=== PATIENT | female | born 1960 | race Caucasian/White ===

== ENCOUNTER 2024-05-09 12:40 | Outpatient (AMB) | payer MEDICAID, SELFPAY ==
[2024-05-09 12:41] VITALS: BP 126/72; PULSE 75; O2SAT 98; BMI 41.2
--- NOTE | 2024-05-09 12:41 | MHC.OFFVIS ---
Vital Signs 05/09/24 12:41 Height 5 ft 2 in Weight 225 lb 8 oz BMI 41.2 BP 126/72 Blood Pressure Location Lt brachial Position Sitting Pulse 75 Pulse Source Pulse Oximeter Pulse Oximetry (%) 98 Oxygen Delivery Method Room Air Intake Visit Reasons: OA Intake Note: Patient presents for follow up on OA, complains of bilateral knee pain, left since February. HPI HPI OA: Details: She has had recurrence of left knee pain. Last cortisone injection lasted at least 3 months. Knee brace does not fit her well due to knee swelling and causes increased pain. She has not been icing or heating knee. [facility] Medical History (Updated 05/09/24 @ 22:04 by Familia Holloway MD) Osteoarthritis Surgical History (Updated 05/09/24 @ 12:59 by Garima Manriquez CMA) No pertinent past surgical history Family History (Updated 05/09/24 @ 13:01 by Garima Manriquez CMA) Mother Diabetes Heart disease Father Heart disease Social History (Updated 05/09/24 @ 13:01 by Garima Manriquez CMA) Alcohol intake: never Patient Tobacco Use Status: Current everyday Tobacco user Cigarettes Per Day: 6 Review of Systems Const All systems reviewed & are unremarkable except as noted in HPI and below Physical Exam Vital Signs: Last Vital Signs Pulse 75 05/09/24 12:41 BP 126/72 05/09/24 12:41 Pulse Ox 98 05/09/24 12:41 Oxygen Delivery Method Room Air 05/09/24 12:41 BMI result Body Mass Index 41.2 Const Other: General: Comfortable Skin: No lesions seen MSK: Tender to palpate left knee along joint line. Mild knee effusion present. Knee flexion 90 degrees with pain. Office Procedures AMB Joint Injection/Aspiration Joint Injection/Aspiration Details: Left knee joint Prep: site was prepped using aseptic technique Injected: 40 mg of, Kenalog, with 1 mL of and 1% plain lidocaine Procedure: The patient tolerated the procedure well. Postprocedure protocol was discussed with patient. Coding 90495 - Large joint Procedure code (CPT) selection complete Office Meds lidocaine (PF) 10 mg/mL (1 %) injection solution Performing Provider: Familia Holloway MD Performing Location: [facility] Administered by: Familia Holloway MD on 05/09/24 21:55 Dose Route Admin Location Dispensed Lot Number Expiration Date [facility] Engineer Sergeant 10 mg Infiltration 2 mL [id number] [employer] Kenalog 40 mg/mL suspension for injection Performing Provider: Familia Holloway MD Performing Location: [facility] Administered by: Familia Holloway MD on 05/09/24 21:55 Dose Route Admin Location Dispensed Lot Number Expiration Date [facility] Engineer Sergeant 40 mg intra-articular 1 mL [id number] [employer] Results Reviewed Results Reviewed: X-ray left knee 05/04/2024 reviewed. Patient has mild tricompartment osteoarthritis. Similar to x-ray 08/05/2020 of bilateral knees, which reveals mild bilateral medial and lateral joint space narrowing. Assessment & Plan Assessment & Plan (1) Osteoarthritis of left knee: Comment: Recurrent left knee pain due to osteoarthritis flare. We reviewed recent x-ray results from [facility] EMR. She has mild osteoarthritis. We discussed management. Code(s): M17.12 - Unilateral primary osteoarthritis, left knee Category: Medical Qualifiers: Osteoarthritis type: primary Qualified Code(s): M17.12 - Unilateral primary osteoarthritis, left knee Plan: Patient received cortisone injection to left knee Apply ice to knee to 3 times a day She deferred physical therapy at this time due to her having multiple appointments with her physicians in the next 2 months Can consider topical diclofenac gel if needed in the future Return to clinic in 3 months or sooner if needed Orders: Orders AMB Joint Injection/Aspiration Today M17.12 - Unilateral primary osteoarthritis, left knee Coding Level of Care Code Est Pt Level 3 (01566) Complex EM visit Add On G2211 Diagnoses Primary osteoarthritis of left knee M17.12 Osteoarthritis type: primary CPT Codes Coding - Large joint: 89740 - Large joint ([id number])
--- OUTSIDE RECORDS SUMMARY | 2024-05-09 14:27 | XMS_ITS | Clinical Summary ---
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 Name Role Phone Unavailable Primary Care Provider Unavailabl e Source Comments PLEASE NOTE, if this patient is a minor, it may be UNLAWFUL to discuss sensitive information that is contained in these records (such as FAMILY PLANNING, MENTAL HEALTH or SUBSTANCE ABUSE) with the minor patient's parent or other person without the patient's specific authorization.[facility] Medications ibuprofen (ADVIL,MOTRIN) 600 mg tablet Take 1 Tab by mouth 4 (four) times daily as needed for pain 12 Tab 08/22/2018 Active Immunizations Name Administration Dates Next Due Moderna COVID-19 Vaccine, re d cap blue label, 12+ Primary Series 08/20/2020,07/23/2020 Social History Tobacco Use Types Packs/Day Years Used Date Smoking Tobacco: Never Assessed Social Connections Answer Date Recorded Social Connections and Isolation 0 07/23/2020 Financial Resource Strain Answer Date R ecorded Financial Resource Strain 0 2020 Stress Answer Date Recorded Stress 0 07/23/2020 Physical Activity Answer Date Recorded Physical Activity 0 07/23/2020 Food Insecurity Answer Date Recorded Food 0 07/23/2020 Transportation Needs Answer Date Record ed Transportation 0 07/23/2020 Housing Stability Answer Date Recorded Housing 0 07/23/2020 Safety and Environment Answer Date Juan Miguel rded Safety 0 07/23/2020 Utilities Answer Date Recorded Utilities 0 07/23/2020 Employment Answer Date Recorded Employment 0 07/23/2020 Comments Unknown Sex and Gender Information Value Date Recorded Sex Assigned at Not on file Legal Sex Female 12:36 PM PDT Gender Identity Not on file Sexual Orientation Not on file Plan of Treatment Health Maintenance Due Date Last Done Comments Diabetes Screening 1960 Hepatitis C Screening 1958 Lipid Screening 1958 Tobacco Screening 1958 HIV Screening 1973 Annual Preventive Care Visit 1976 Hypertension Screening (#1) 1976 Imm-DTaP/Tdap/Td (1 - Tdap) 1977 Breast Cancer Screening (Mammogram) 1998 CT Colonography 10/20/2003 Colonoscopy 10/20/2003 Colorectal Cancer Screening 10/20/2003 FIT/gFOBT 10/20/2003 Fecal DNA 10/20/2003 Flexible Sigmoidoscopy 10/20/2003 Imm-Zoster, Recombinant (1 of 2) 2008 Alcohol and Drug Screen 04/18/2023 Depression Annual Screen 04/18/2023 Bone Density Screening 10/20/2023 Falls Prevention 10/20/2023 Imm-Pneumococcal 65+ (1 of 1 - PCV) 10/20/2023 [id number] (3 - 2023- season) 2023 021, 07/23/2020 Imm-Influenza (#1) 2023 Insurance [place] [facility] D[facility]AL [place]
--- OUTSIDE RECORDS SUMMARY | 2024-05-09 14:27 | XMS_ITS | Data Portability ---
Author Organization [place] - [facility], All[facility] Address [address] [place] [address] Assessment Encounter Date Assessment Date Assessment LastModified by Organization Details LastModified Time 04/24/2024 04/24/2024 63 year old diabetic female presents reporting acute sinusitis. I have issued her a prescription for ten day course of Doxycycline. I did also issue her a prescription for Prednisone but given her diabetes she would need to monitor her blood sugars closely if she decides to take the Prednisone. I will see her back in one month for reevaluation. If her symptoms persist she may benefit from nasal endoscopy and potentially CT sinus. She is also interested in allergy testing. Not available 04/24/2024 14:38:35 Plan of Treatment Reminders Order Date Submit Date Provider Last Modified By Organization Details Last Modified Time Details Appointments Establish ed 15 2024 01:15P Tomer HEBERT PA-C Not available Not available Not available Lab None recorded. Referral None recorded. Procedures None recorded. Surgeries None recorded. Imaging None recorded. Medication Orders doxycycli ne hyclate 100 mg tablet 2024 025 [id number], [address] [place], [address], 04/24/2024 14:26:25 prednison e 10 mg tablet 2024 025 [id number], [address] [place], [address], 04/25/2024 14:28:40 Patient TargetsNo targets recorded. Patient InstructionsNo instructions recorded. Reason for Referral None Reported. Problems Name Problem SNOMED Code Status Onset Date Resolution Date Notes Provider Name and Address Organization Details Recorded Time Chronic pansinusi tis 16748742 Active 2022 Chronic pansinusit is; Note: Date Diagnosed: 06/23/2022 11:57 AM (J32.4) Not Available [facility] 4 03:27:36 Gastroeso phageal reflux disease 052204069 Active 2013 GERD; CMS Risk: moderate risk CMS Treatment: new problem (to examiner): no additional workup planned No te: Date Diagnosed: 01/18/2014 10:41 AM (530.81) Not Available [facility] 4 03:27:36 Dysphagia 45960584 Active 2013 Dysphagia; CMS Risk: moderate risk CMS Treatment: new problem (to examiner): no additional workup planned No te: Date Diagnosed: 01/18/2014 10:41 AM (787.20) Not Available [facility] 4 03:27:37 Acute sinusitis 77294035 Active 2024 LEON HEBERT PA-C [address] [place] [address], [place], [address] , [facility] 5 14:23:03 Problem Notes None recorded. Medical Equipment None Reported. Allergies Allergen ID Allergen Name Allergen Category Reaction Reaction Severity Criticality Documentation Date Start Date Code Code System Note Provider Name and Address Organization Details Recorded Time 17148 clarithro mycin medicatio n other Not available Not available 08/30/2023 31383 RxNorm React ion: Unkno wn; Not Available [facility] 4 00:49:19 48892 Bactrim medicatio n other Not available Not available 08/30/2023 96832 9 RxNorm React ion: Unkno wn; Not Available [facility] 4 00:49:34 35504 amoxicill in medicatio n other Not available Not available 08/30/2023 723 RxNorm React ion: Unkno wn; Not Available [facility] 4 00:49:45 Medications Name Sig Start Date Stop Date Status Note LastModified by Organization Details LastModified Time metformin 500 mg tablet TAKE 1 TABLET BY MOUTH 2 TIMES A DAY WITH MEALS X 90 DAYS WITH MEALS active Not Available Not Available No t Available atorvasta tin 80 mg tablet TOME 1 TABLETA POR V A ORAL TODOS LOS D active Not Available Not Available No t Available prednison e 10 mg tablet TOME 4 TABS DIARIO POR 3 ELLSWORTH, 3 TABS DIARIO POR 3 ELLSWORTH, Y 2 TABS DIARIO POR 3 ELLSWORTH active Not Available Not Available No t Available doxycycli ne hyclate 100 mg capsule Take 1 capsule by mouth twice a day 2022 active Medicati on ID: [id number] D uration Value: 14 Brand Name: doxycycl ine hyclate Send Method: E-Prescr ibed Sub s Allowed: subs OK Medic ationGen ericName : doxycycl ine hyclate Not Available Not Available Not Available albuterol sulfate 2.5 mg/3 mL (0.083 %) solution for nebulizat ion 06/23 completed Medicati on ID: 1166 Bra nd Name: albutero l sulfate Send Method: E-Prescr ibed Sub s Allowed: subs OK Medic ationGen ericName : albutero l sulfate Not Available Not Available Not Available azithromy hector 250 mg tablet TOME 2 TABLETAS V A ORAL HOY, LUEGO TOME 1 TABLETA DIARIAME NTE RUBEN 4 D SEG N LAS INDICACI ONES active Not Available Not Available No t Available fosfomyci n trometham ine 3 gram oral packet TAKE 1 SACHET BY MOUTH ONCE active Not Available Not Available No t Available nicotine (polacril ex) 2 mg gum CHEW 1 PIECE EVERY 2 HOURS NEEDED FOR SMOKING CESSATIO N SEG N LO INDICADO active Not Available Not Available No t Available metoprolo l succinate ER 50 mg tablet,ex tended release 24 hr TOME 1 TABLETA POR V A ORAL TODOS LOS D active Not Available Not Available No t Available FreeStyle Lancets 28 gauge USE TO TEST BLOOD SUGAR UP TO 3 TIMES DAILY DIRECTED active Not Available Not Available No t Available lisinopri l 20 mg tablet 06/23 completed Medicati on ID: 1161 Bra nd Name: lisinopr il Send Method: E-Prescr ibed Sub s Allowed: subs OK Medic ationGen ericName : lisinopr il Not Available Not Available Not Available ondansetr on HCl 4 mg tablet TOME OMAIRA TABLETA POR V A ORAL CADA OCHO HORAS FOR 5 DAYS active Not Available Not Available No t Available prednison e 20 mg tablet TOME DOS TABLETAS POR V A ORAL TODOS LOS D POR 5 D CON ALIMENTO OR MILK active Not Available Not Available No t Available clonazepa m 0.5 mg tablet TAKE 1 TABLET BY MOUTH AT BEDTIME NEEDED FOR ANXIETY/ INSOMNIA active Not Available Not Available No t Available clonazepa m 1 mg tablet active Medicati on ID: [id number] B rand Name: clonazep am Send Method: E-Prescr ibed Sub s Allowed: subs OK Speci al Instruct ion: TAKE 1 TABLET BY MOUTH AT BEDTIME NEEDED FOR ANXIETY/ INSOMNIA Medicat ionGener icName: clonazep am Not Available Not Available Not Available Lantus U-100 Insulin 100 unit/mL subcutane ous solution INJECT 25 UNITS SUBCUTAN EOUS INJECTIO N DAILY active Not Available Not Available No t Available amlodipin e 2.5 mg tablet active Medicati on ID: [id number] B rand Name: amlodipi ne Send Method: E-Prescr ibed Sub s Allowed: subs OK Speci al Instruct ion: TOME OMAIRA TABLETA POR V A ORAL TODOS LOS D Medic ationGen ericName : amlodipi ne Not Available Not Available Not Available amlodipin e 5 mg tablet TOME 1 TABLETA POR V A ORAL TODOS LOS D FOR 90 DAYS active Not Available Not Available No t Available aspirin 81 mg tablet,de layed release TOME 1 TABLETA POR V A ORAL TODOS LOS D DO NOT CRUSH OR CHEW active Not Available Not Available No t Available Vitamin D3 10 mcg (400 unit) tablet TOME DOS TABLETAS POR V A ORAL TODOS LOS D active Not Available Not Available No t Available clindamyc in 1 % topical gel APPLY TOPICALL Y 2 TIMES A DAY FOR 7 DAYS USE IF BENZOYL PEROXIDE NOT WORKING AFTER 10 DAYS active Not Available Not Available No t Available ascorbic acid (vitamin C) 250 mg tablet TOME OMAIRA TABLETA TODOS LOS D active Not Available Not Available No t Available amlodipin e 10 mg tablet TOME OMAIRA TABLETA POR V A ORAL TODOS LOS D active Not Available Not Available No t Available benzonata te 100 mg capsule TOME 1 C PSULA POR V A ORAL RAYNA VECES AL D A CUANDO SEA NECESARI O PARA COUGH, [place] active Not Available Not Available No t Available nitrofura ntoin macrocrys sandra 100 mg capsule TOME 1 C PSULA POR V A ORAL DOS VECES AL D A active Not Available Not Available No t Available triamcino lone acetonide 0.1 % topical ointment APPLY TO ARMS, BACK, AND LEGS TWICE A DAY NEEDED FOR FLARES REDUCE SYMPTOMS IMPROVE active Not Available Not Available No t Available buspirone 10 mg tablet active Medicati on ID: [id number] B rand Name: buspiron e Send Method: E-Prescr ibed Sub s Allowed: subs OK Speci al Instruct ion: TAKE 1 TABLET BY MOUTH TWICE DAILY Me dication GenericN cristian: buspiron e Not Available Not Available Not Available Advair Diskus 250 mcg-50 mcg/dose powder for inhalatio n active Medicati on ID: [id number] B rand Name: Advair Diskus S end Method: E-Prescr ibed Sub s Allowed: subs OK Speci al Instruct ion: INHALE 1 PUFF INHALATI ON TWICE A DAY FOR 30 DAYS. Me dication GenericN cristian: Advair Diskus Not Available Not Available Not Available nicotine 21 mg/24 hr daily transderm al patch APPLY 1 PATCH TOPICALL Y A DIARIO active Not Available Not Available No t Available lisinopri l 30 mg tablet TOME 1 TABLETA POR V A ORAL TODOS LOS D active Not Available Not Available No t Available monteluka st 10 mg tablet TOME OMAIRA TABLETA POR V A ORAL CADA NOCHE active Not Available Not Available No t Available mirtazapi ne 15 mg tablet TOME 1 TABLETA POR V A ORAL TODOS LOS D AL ACOSTARS E active Not Available Not Available No t Available lisinopri l 40 mg tablet active Medicati on ID: [id number] B rand Name: lisinopr il Send Method: E-Prescr ibed Sub s Allowed: subs OK Speci al Instruct ion: TOME OMAIRA TABLETA TODOS LOS D Medic ationGen ericName : lisinopr il Not Available Not Available Not Available fluoxetin e 20 mg capsule TOME OMAIRA C PSULA TODOS LOS D active Not Available Not Available No t Available fluticaso ne propionat e 50 mcg/actua tion nasal spray,melita pension 06/23 completed Medicati on ID: [id number] B rand Name: fluticas one propiona te Send Method: E-Prescr ibed Sub s Allowed: subs OK Speci al Instruct ion: USE 2 SPRAYS IN EACH NOSTRIL ONCE DAILY Me dication GenericN cristian: fluticas one propiona te Not Available Not Available Not Available doxycycli ne hyclate 100 mg tablet TOME 1 TABLETA POR V A ORAL DOS VECES AL D A FOR 21 DAYS active Not Available Not Available No t Available loratadin e 10 mg tablet TOME 1 TABLETA POR V A ORAL TODOS LOS D active Not Available Not Available No t Available Ventolin HFA 90 mcg/actua tion aerosol inhaler INHALE 2 PUFFS BY MOUTH EVERY 6 HOURS NEEDED FOR WHEEZING /SHORTNE SS OF BREATH active Not Available Not Available No t Available clonazepa m 2 mg disintegr ating tablet 06/23 completed Medicati on ID: 1164 Bra nd Name: clonazep am Send Method: E-Prescr ibed Sub s Allowed: subs OK Medic ationGen ericName : clonazep am Not Available Not Available Not Available Lorata-D 10 mg-240 mg tablet,ex tended release 06/23 completed Medicati on ID: [id number] Bra nd Name: Lorata-D Send Method: E-Prescr ibed Sub s Allowed: subs OK Medic ationGen ericName : Lorata-D Not Available Not Available Not Available metformin ER 1,000 mg tablet,ex tended release 24hr (osmotic) 06/23 completed Medicati on ID: 1159 Bra nd Name: metformi n Send Method: E-Prescr ibed Sub s Allowed: subs OK Medic ationGen ericName : metformi n Not Available Not Available Not Available varenicli ne tartrate 1 mg tablet TOME 1 TABLETA POR V A ORAL DOS VECES AL D A FOR 30 DAYS active Not Available Not Available No t Available varenicli ne tartrate 0.5 mg (11)-1 mg (42) tablets in a dose pack TOME SEG N LO INDICADO active Not Available Not Available No t Available Symbicort 160 mcg-4.5 mcg/actua tion HFA aerosol inhaler active Medicati on ID: [id number] B rand Name: Symbicor t Send Method: E-Prescr ibed Sub s Allowed: subs OK Speci al Instruct ion: INHALE 2 PUFFS DOS VECES AL D A Medica tionGene ricName: Symbicor t Not Available Not Available Not Available FreeStyle [place] Lite kit USE DIRECTED FOR TYPE 2 DIABETES MELLITUS active Not Available Not Available No t Available Mucus Relief ER 600 mg tablet, extended release TAKE 1 TAB BY MOUTH EVERY 12 HOURS,X7 DAYS,INS TR:NOT TO EXCEED 2400 MILLIGRA MS/DAY. WITH FLUIDS active Not Available Not Available No t Available fluoxetin e 60 mg tablet 06/23 completed Medicati on ID: 1162 Bra nd Name: fluoxeti ne Send Method: E-Prescr ibed Sub s Allowed: subs OK Medic ationGen ericName : fluoxeti ne Not Available Not Available Not Available BP Wash 5 % topical cleanser APLIQUE AL SHALINI AFECTADA DOS VECES AL D A active Not Available Not Available No t Available Nasacort 55 mcg nasal spray aerosol [place] 2 spray into both nostrils once a day 2022 active Medicati on ID: [id number] D uration Value: 30 Brand Name: Nasacort Send Method: E-Prescr ibed Sub s Allowed: subs OK Medic ationGen ericName : Nasacort Not Available Not Available Not Available nicotine (polacril ex) 2 mg buccal mini lozenge USE 1 LOZENGE BY MOUTH EVERY 2 HOURS DIRECTED ON PACKAGE active Not Available Not Available No t Available Trelegy Ellipta 200 mcg-62.5 mcg-25 mcg powder for inhalatio n active Medicati on ID: [id number] B rand Name: Trelegy Ellipta Send Method: E-Prescr ibed Sub s Allowed: subs OK Speci al Instruct ion: INHALE UN SOPLIDO A DIARIO AT THE SAME TIME EVERY DAY Medi cationGe nericNam e: Trelegy Ellipta Not Available Not Available Not Available aspirin 81 mg capsule 06/23 completed Medicati on ID: 1165 Bra nd Name: Aspir-81 Send Method: E-Prescr ibed Sub s Allowed: subs OK Medic ationGen ericName : Aspir-81 Not Available Not Available Not Available Vitals Date Recorded Body height Provider Name an d Address Organization Details Last Updated DateTime 04/24/2024 157.48 cm Geovanna Patterson [place] - [facility] 04/24/2024 13:42:40 Social History None recorded. Functional Status None recorded. Mental Status None recorded. Family History Nothing Reported. Medical History No medical history recorded. Gynecological HistoryNo gynecological history recorded. Obstetrics History GPAL:G 0 P 0 0 0 0 Past Encounters Encounter ID Performer Location Encounter Start Date Encounter Closed Date Diagnosis/Indication Diagnosis SNOMED-CT Code Diagnosis ICD10 Code Diagnosis Note [id number] SHANA HOFFMAN MD [facility] [address] [address] 04/24/2024 13:31:45 04/24/2024 14:30:23 Acute sinusitis 39507447 J01.90 Health Concerns Section Related Observation LastModified by Organization Detai ls LastModified Time None Recorded Concern Status LastModified by Organization Details LastModified Time None Recorded Advance Directives Directive None Recorded Payers Encounter Date Sequence Insurance Name Policy Number Policy Alfaro Covered Member ID Alfaro Member ID Guarantor Name 04/24/2024 1 [place]ICAID[place] [facility] Roxy Ian [id number] Roxy Sosa Notes Date Note Type Note Provider Name and Address Organization Details Recorded Time 04/24/2024 text/html 63 year old lázaro phillips presents to the office accompanied by her daughter reporting right sided facial pain and pressure for the past week. She reports bilateral facial pain as she points overlying her maxillary sinuses. She has been treated for recurrent sinusitis in the past by Dr. Hamilton and responded well to Doxycycline. She uses Nasocort daily. SHANA HOFFMAN MD [address] [place] [address], [phone], [place] - [facility] 04/24/2024 16:57:37 OBGyn Episode No OBEpisode recorded.
--- OUTSIDE RECORDS SUMMARY | 2024-05-09 14:27 | XMS_ITS | Continuity of Care Document ---
Author Organization [place] - [facility], [facility] Address [address] [place] [address] Assessment Encounter Date Assessment Date Assessment LastModified [...] 100 mg tablet 2024 025 [id number], [address] [place], [address], 04/24/2024 14:26:25 prednison e 10 mg tablet 2024 025 [id number], [address] [place], [address], 04/25/2024 14:28:40 Patient TargetsNo targets recorded. Patient InstructionsNo instructions recorded. Reason for Referral None Reported. Problems Name Problem SNOMED Code Status Onset Date Resolution Date Notes Provider Name and Address Organization Details Recorded Time Chronic pansinusi tis 63621681 Active 2022 Chronic pansinusit is; Note: Date Diagnosed: 06/23/2022 11:57 AM (J32.4) Not Available [facility] 4 03:27:36 Gastroeso phageal reflux disease 592204213 Active 2013 GERD; CMS Risk: moderate risk CMS Treatment: new problem (to examiner): no additional workup planned No te: Date Diagnosed: 01/18/2014 10:41 AM (530.81) Not Available [facility] 4 03:27:36 Dysphagia 07588897 Active 2013 Dysphagia; CMS Risk: moderate risk CMS Treatment: new problem (to examiner): no additional workup planned No te: Date Diagnosed: 01/18/2014 10:41 AM (787.20) Not Available [facility] 4 03:27:37 Acute sinusitis 23067178 Active 2024 LEON HEBERT PA-C [address] [place] [address],[place] [address], [place], [address] , [facility] - [facility] 5 14:23:03 Problem Notes None recorded. Medical Equipment None Reported. Allergies Allergen ID Allergen Name Allergen Category Reaction Reaction Severity Criticality Documentation Date Start Date Code Code System Note Provider Name and Address Organization Details Recorded Time 11309 clarithro mycin medicatio n other Not available Not available 08/30/2023 96421 RxNorm React ion: Unkno wn; Not Available [facility] 4 00:49:19 43905 Bactrim medicatio n other Not available Not available 08/30/2023 97366 9 RxNorm React ion: Unkno wn; Not Available [facility] 4 00:49:34 60312 amoxicill in medicatio n other Not available Not available 08/30/2023 723 RxNorm React ion: Unkno wn; Not Available [facility] 4 00:49:45 Medications Name Sig [...] a day 2022 active Medicati on ID: [id number] D uration Value: 14 Brand Name: doxycycl [...] 1 mg tablet active Medicati on ID: 928135 B rand Name: clonazep am Send Method: [...] 2.5 mg tablet active Medicati on ID: 362664 B rand Name: amlodipi ne Send Method: [...] 10 mg tablet active Medicati on ID: 263618 B rand Name: buspiron e Send Method: E-Prescr ibed Sub s Allowed: subs OK Speci al Instruct ion: TAKE 1 TABLET BY MOUTH TWICE DAILY Me dication GenericN cristian: buspiron e Not Available Not Available Not Available Advair Diskus 250 mcg-50 mcg/dose powder for inhalatio n active Medicati on ID: 270672 B rand Name: Advair Diskus S end [...] 40 mg tablet active Medicati on ID: 867842 B rand Name: lisinopr il Send Method: [...] spray,melita pension 06/23 completed Medicati on ID: 983942 B rand Name: fluticas one propiona te [...] HFA aerosol inhaler active Medicati on ID: 585875 B rand Name: Symbicor t Send Method: E-Prescr ibed Sub s Allowed: subs OK Speci al Instruct ion: INHALE 2 PUFFS DOS VECES AL D A Medica tionGene ricName: Symbicor t Not Available Not Available Not Available FreeStyle [place] Lite kit USE DIRECTED FOR TYPE 2 [...] Available Nasacort 55 mcg nasal spray aerosol [place]io 2 spray into both nostrils once a day 2022 active Medicati on ID: 782304 D uration Value: 30 Brand Name: Nasacort [...] for inhalatio n active Medicati on ID: 429323 B rand Name: Trelegy Ellipta Send Method: [...] ibed Sub s Allowed: subs OK Medic atdarionGen ericName : Aspir-81 Not Available Not Available Not Available Vitals Date Recorded Body height Provider Name an d Address Organization Details Last Updated DateTime 04/24/2024 157.48 cm Geovanna Patterson [place] - [facility] 04/24/2024 13:42:40 Social History None recorded. Functional Status None recorded. Mental Status None recorded. Family History Nothing Reported. Medical History No medical history recorded. Gynecological HistoryNo gynecological history recorded. Obstetrics History GPAL:G 0 P 0 0 0 0 Past Encounters Encounter ID Performer Location Encounter Start Date Encounter Closed Date Diagnosis/Indication Diagnosis SNOMED-CT Code Diagnosis ICD10 Code Diagnosis Note [id number] SHAAN HOFFMAN MD [facility] [address] [address] 04/24/2024 13:31:45 04/24/2024 14:30:23 Acute sinusitis 28007169 J01.90 Health Concerns Section Related Observation LastModified by Organization Detai ls LastModified Time None Recorded Concern Status LastModified by Organization Details LastModified Time None Recorded Payers Encounter Date Sequence Insurance Name Policy Number Policy Alfaro Covered Member ID Alfaro Member ID Guarantor Name 04/24/2024 1 MEDICAID-[place]: [facility] Roxy Ian [id number] Roxy Sosa Notes Date Note Type Note Provider Name and Address Organization Details Recorded Time 04/24/2024 text/html 63 year old lzáaro phillips presents to the office accompanied by her daughter reporting right sided facial pain and pressure for the past week. She reports bilateral facial pain as she points overlying her maxillary sinuses. She has been treated for recurrent sinusitis in the past by Dr. Hamilton and responded well to Doxycycline. She uses Nasocort daily. SHANA HOFFMAN MD [address] [place] [address], [phone], [facility] - [facility] 04/24/2024 16:57:37 OBGyn Episode No OBEpisode recorded.
--- OUTSIDE RECORDS SUMMARY | 2024-05-09 14:28 | XMS_ITS | Clinical Summary ---
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 Name Role Phone Unavailable Primary Care Provider Unavailabl e Social History Tobacco Use Types Packs/Day Years Used Date Smoking Tobacco: Never Assessed Sex and Gender Information Value Date Recorded Sex Assigned at Not on file Gender Identity Not on file Sexual Orientation Not on file Plan of Treatment Health Maintenance Due Date Last Done Comments Breast Cancer Screening 1958 DTaP,Tdap,and Td Vaccines (1 - Tdap) 1977 Cervical Cancer Screening: P ap Smear 10/20/1979 Zoster Vaccines (1 of 2) 2008 Colorectal Cancer Screening: Colonoscopy 03/21/2022 Depression Screening 03/21/2022 Hepatitis C Screening 03/21/2022 Osteoporosis Screening (Bone Density Screening) 03/21/2022 Social Influencers of Health Screening 03/21/2022 Falls Risk Assessment 10/20/2023 Pneumococcal Vaccine: 65+ Ye ars (1 of 1 - PCV) 10/20/2023 COVID-19 Vaccine ( - 2023-2 5 season) 2023 Influenza Vaccine (#1) 2023 RSV Immunization Patients 60 + Years Old (1 - 1-dose 75+ series) 2033 HIB Vaccines Aged Out No longer eligi ble based on patient's age to complete this topic HPV Vaccines Aged Out No longer eligi ble based on patient's age to complete this topic Hepatitis A Vaccines Aged Out No long er eligible based on patient's age to complete this topic Hepatitis B Vaccines Aged Out No long er eligible based on patient's age to complete this topic IPV Vaccines Aged Out No longer eligi ble based on patient's age to complete this topic MMR Vaccines Aged Out No longer eligi ble based on patient's age to complete this topic Meningococcal ACWY Vaccine Aged Out N o longer eligible based on patient's age to complete this topic Pneumococcal Vaccine: Pediat rics (0 to 5 Years) and At-Risk Patients (6 to 64 Years) Aged Out No longer eligible b ased on patient's age to complete this topic RSV Immunization Patients Un mika 20 months Aged Out No longer eligible b ased on patient's age to complete this topic Varicella Vaccines Aged Out No longer eligible based on patient's age to complete this topic Advance Directives Documents on File Type Date Recorded Patient Striker Off Expl anation Health Care Decision (hx) 01/31/2017 AD JON DIRECTIVE Health Care Decision (hx) 01/31/2017 AD JON DIRECTIVE Health Care Decision (hx) 01/31/2017 AD JON DIRECTIVE Health Care Decision (hx) 01/31/2017 AD JON DIRECTIVE Health Care Decision (hx) 01/31/2017 AD JON DIRECTIVE Health Care Decision (hx) 01/31/2017 AD JON DIRECTIVE Health Care Decision (hx) 01/31/2017 AD JON DIRECTIVE Health Care Decision (hx) 01/31/2017 AD JON DIRECTIVE Health Care Decision (hx) 01/31/2017 AD JON DIRECTIVE Health Care Decision (hx) 01/31/2017 AD JON DIRECTIVE Health Care Decision (hx) 01/31/2017 AD JON DIRECTIVE
== END 2024-05-09 13:31 | disposition home or self-care (01) ==
PROVIDERS: Visit Provider Internal Medicine Rheumatology
DX: M17.12 Unilateral primary osteoarthritis, left knee (principal)
CPT/HCPCS: 20610; 99213

== ENCOUNTER → 2024-05-09 12:40 | Outpatient (BNVA) | payer MEDICAID, SELFPAY | PROVIDERS: Visit Provider Internal Medicine Rheumatology | DX: M17.12 Unilateral primary osteoarthritis, left knee (principal); M25.561 Pain in right knee | CPT/HCPCS: 20610; 99212; J2003; J3300 ==

== ENCOUNTER 2024-08-08 12:30 | Outpatient (AMB) | payer MEDICARE, MEDICAID, SELFPAY ==
[2024-08-08 12:49] VITALS: BP 122/60; PULSE 90; O2SAT 97; BMI 42.6
--- NOTE | 2024-08-08 12:49 | MHC.OFFVIS ---
Vital Signs 08/08/24 12:49 Height 5 ft 2 in Weight 232 lb 12.93 oz BMI 42.6 BP 122/60 Blood Pressure Location Lt brachial Position Sitting Pulse 90 Pulse Source Pulse Oximeter Pulse Oximetry (%) 97 Oxygen Delivery Method Room Air Intake Visit Reasons: Follow up 3mo Intake Note: Patient presents for follow up on OA, Accompanied by: Self / Same As Patient HPI HPI Follow up 3mo: Details: Left knee pain started PFSH Medical History Osteoarthritis Surgical History No pertinent past surgical history Family History Mother Diabetes Heart disease Father Heart disease Social History Alcohol intake: never Patient Tobacco Use Status: Current everyday Tobacco user Cigarettes Per Day: 6 Physical Exam Vital Signs: Last Vital Signs Pulse 90 08/08/24 12:49 BP 122/60 08/08/24 12:49 Pulse Ox 97 08/08/24 12:49 Oxygen Delivery Method Room Air 08/08/24 12:49 BMI result Body Mass Index 42.6 Assessment & Plan Assessment & Plan (1) Osteoarthritis of left knee: Comment: Recurrent left knee pain due to uncontrolled pain from osteoarthritis. X-ray left knee April 2024 reveals mild osteoarthritis. She had about 2-1/2 months benefit with cortisone injection. She does not want to try another cortisone injection. We discussed next steps with hyaluronic acid injection. She would like to proceed with Euflexxa. Code(s): M17.12 - Unilateral primary osteoarthritis, left knee Category: Medical Qualifiers: Osteoarthritis type: primary Qualified Code(s): M17.12 - Unilateral primary osteoarthritis, left knee (2) Left foot pain: Comment: Acute onset localized pain to 1st MTP of unclear etiology. Code(s): M79.672 - Pain in left foot Category: Medical Orders: Orders Alanine Aminotransferase Today M17.12 - Unilateral primary osteoarthritis, left knee Aspartate Amino Transferase Today M17.12 - Unilateral primary osteoarthritis, left knee XR foot LT min 3V Today M79.672 - Pain in left foot Creatinine Today M17.12 - Unilateral primary osteoarthritis, left knee Medications: New diclofenac sodium 1% apply to affected area every 4-6 hours PRN pain 2 grams topical QID 100 grams 5RF Coding Diagnoses Primary osteoarthritis of left knee M17.12 Osteoarthritis type: primary Left foot pain M79.672
--- NOTE | 2024-08-08 13:21 | MHC.OFFVIS ---
Vital Signs 08/08/24 12:49 Height 5 ft 2 in Weight 232 lb 12.93 oz BMI 42.6 BP 122/60 Blood Pressure Location Lt brachial Position Sitting Pulse 90 Pulse Source Pulse Oximeter Pulse Oximetry (%) 97 Oxygen Delivery Method Room Air Intake Visit Reasons: Follow up 3mo HPI HPI Follow up 3mo: Details: 2-3 weeks ago she started experiencing pain in her left toe radiating upwards. She is also experiencing knee pain that started 2 weeks ago. No trauma associated with pain onset. She has not self medicating. She is not applying ice or heat to the areas. [facility] Medical History Osteoarthritis Surgical History No pertinent past surgical history Family History Mother Diabetes Heart disease Father Heart disease Social History Alcohol intake: never Patient Tobacco Use Status: Current everyday Tobacco user Cigarettes Per Day: 6 Review of Systems Const All systems reviewed & are unremarkable except as noted in HPI and below Physical Exam Vital Signs: Last Vital Signs Pulse 90 08/08/24 12:49 BP 122/60 08/08/24 12:49 Pulse Ox 97 08/08/24 12:49 Oxygen Delivery Method Room Air 08/08/24 12:49 BMI result Body Mass Index 42.6 Const Other: General: Comfortable Skin: No lesions seen MSK: Tender to palpate left knee along joint line. She has purplish discoloration on anterior left knee. Knee flexion 90 degrees with pain. Tender to palpate left 1st MTP. Assessment & Plan Assessment & Plan (1) Osteoarthritis of left knee: Comment: Recurrent left knee pain due to uncontrolled pain from osteoarthritis. X-ray left knee April 2024 reveals mild osteoarthritis. She had about 2-1/2 months benefit with cortisone injection. She does not want to try another cortisone injection. We discussed next steps with hyaluronic acid injection. She would like to proceed with Euflexxa. Code(s): M17.12 - Unilateral primary osteoarthritis, left knee Category: Medical Qualifiers: Osteoarthritis type: primary Qualified Code(s): M17.12 - Unilateral primary osteoarthritis, left knee Plan: Euflexxa PA left knee Apply ice to knee . If no benefit try heat She deferred physical therapy at this time as she gets overwhelmed with too many appointments Apply topical diclofenac gel to affected area up to 4 times a day. Baseline kidney function liver function ordered Return to clinic in 1 month for left knee Euflexxa (2) Left foot pain: Comment: Acute onset localized pain to 1st MTP of unclear etiology. Code(s): M79.672 - Pain in left foot Category: Medical Plan: Left foot x-ray ordered. Requisition given to patient as she prefers to have it done at [address] due to transportation issues. Apply diclofenac gel to affected area every 4-6 hours as needed Discussed importance of wearing supportive footwear Return to clinic in 1 month Orders: Orders Alanine Aminotransferase Today M17.12 - Unilateral primary osteoarthritis, left knee Aspartate Amino Transferase Today M17.12 - Unilateral primary osteoarthritis, left knee XR foot LT min 3V Today M79.672 - Pain in left foot Creatinine Today M17.12 - Unilateral primary osteoarthritis, left knee Medications: New diclofenac sodium 1% apply to affected area every 4-6 hours PRN pain 2 grams topical QID 100 grams 5RF Coding Level of Care Code Est Pt Level 4 (08475) Complex EM visit Add On G2211 Diagnoses Primary osteoarthritis of left knee M17.12 Osteoarthritis type: primary Left foot pain M79.672
--- OUTSIDE RECORDS SUMMARY | 2024-08-08 14:46 | XMS_ITS | Clinical Summary ---
Author Organization [facility] ity Address [address] [place] [address] Care Team Providers Care Marinator Name Role Phone Unavailable Primary Care Provider Unavailabl e Social History Tobacco Use Types Packs/Day Years Used Date Smoking Tobacco: Never Assessed Comments Unknown Sex and Gender Information Value Date Recorded Sex Assigned at Not on file Legal Sex Female 10:47 PM EST Gender Identity Not on file Sexual Orientation Not on file Plan of Treatment Health Maintenance Due Date Last Done Comments Breast Cancer Screening 1960 DTaP,Tdap,and Td Vaccines (1 - Tdap) 1977 Cervical Cancer Screening: P ap Smear 10/20/1979 Pneumococcal Vaccine: 50+ Ye ars (1 of 1 - PCV) 2008 Zoster Vaccines (1 of 2) 2008 Colorectal Cancer Screening: Colonoscopy 03/21/2022 Depression Screening 03/21/2022 Hepatitis C Screening 03/21/2022 Osteoporosis Screening (Bone Density Screening) 03/21/2022 Social Influencers of Health Screening 03/21/2022 Falls Risk Assessment 10/20/2023 COVID-19 Vaccine ( - 2023-2 5 season) 2023 Influenza Vaccine (Season Ended) 2024 RSV Immunization Adult Patie nts (1 - 1-dose 75+ series) 2033 HIB [...] patient's age to complete this topic Meningococcal B Vaccine Aged Out No l onger eligible based on patient's age to complete [...] Documents on File Type Date Recorded Patient Level Glass Vial Filler Expl anation Health Care Decision (hx) 01/31/2017 [...]
--- OUTSIDE RECORDS SUMMARY | 2024-08-08 14:46 | XMS_ITS | Clinical Summary ---
Author Organization [facility] Address [address] [place] [address] Care Team Providers Care Melter Loader Name Role Phone Unavailable Primary Care Provider [...] for pain 12 Tab 08/22/2018 Active Immunizations Immunization Administration Dates Next Due Moderna COVID-19 Vaccine, [...] Health Maintenance Due Date Last Done Comments Anxiety Screening 1958 Diabetes Screening 1958 Hepatitis C Screening 1958 Lipid Screening 1958 Tobacco Screening 1958 HIV Screening 1973 Hypertension Screening (#1) 1976 Imm-DTaP/Tdap/Td (1 - Tdap) 1977 Breast Cancer Screening (Mammogram) 1998 CT Colonography 10/20/2003 Colonoscopy 10/20/2003 Colorectal Cancer Screening 10/20/2003 FIT/gFOBT 10/20/2003 Fecal DNA 10/20/2003 Flexible Sigmoidoscopy 10/20/2003 Imm-Pneumococcal 65+ (1 of 1 - PCV) 2008 Imm-Zoster, Recombinant (1 of 2) 2008 Bone Density Screening 10/20/2023 Falls Prevention 10/20/2023 Wel-THIMA-60 ( season) 2023 021, 07/23/2020 Imm-Influenza (#1) 2023 Alcohol and Drug Screen 04/18/2024 Depression Annual Screen 04/18/2024 [place] D[place] COUNT[place] INCLUDE 234 BEDS AT THE [facility] D[facility]
== END 2024-08-08 13:41 | disposition home or self-care (01) ==
LOC: HO.RHES 12:30
PROVIDERS: PCP Internal Medicine; Visit Provider Internal Medicine Rheumatology
DX: M17.12 Unilateral primary osteoarthritis, left knee (principal); M79.672 Pain in left foot
CPT/HCPCS: 99214; G2211

== ENCOUNTER 2024-08-08 12:30 | Outpatient (REF) | payer MEDICAID, SELFPAY ==
--- OUTSIDE RECORDS SUMMARY | 2024-08-08 16:23 | XMS_ITS | Clinical Summary ---
Author Organization [employer] [facility] ity Address [address] [place] [address] Care Team Providers Care Car Audio Installer Name Role Phone Unavailable Primary Care Provider [...] Documents on File Type Date Recorded Patient Integration Manager Expl anation Health Care Decision (hx) 01/31/2017 [...]
--- OUTSIDE RECORDS SUMMARY | 2024-08-08 16:24 | XMS_ITS | Data Portability ---
Author Organization [place] - [facility], Allergy Address [address] [facility] 100 [place] [address] Care Team Providers Care Senior Quantity Surveyor Name Role Phone LIBIAYULIET Bunch Primary Care Provider Assessment Encounter Date Assessment Date Assessment LastModified [...] in allergy testing. Not available 04/24/2024 14:38:35 05/22/2024 05/22/2024 63 year old female presents for follow up of acute sinusitis. Her symptoms are nearly fully resolved with Prednisone and Doxycycline. I have recommended that she switch to Zyrtec or Jo to see if she gets more benefit than Claritin which she has been on for a long time. Continue Flonase. I have ordered allergy testing. We will follow up after the allergy testing. Not available 05/22/2024 13:12:51 06/26/2024 06/26/2024 63 year old female presents to follow up on her allergy testing obtained due to recurrent sinusitis. At the time of her testing she was confused as to which medications she needed to hold. She ended up holding all medications including her asthma medications. PFTs were reviewed by Dr. Loya and he recommended RAST rather than skin testing. RAST is positive for dust mites, cockroaches and a couple molds but is otherwise negative. We discussed that skin testing is more accurate than RAST. If she is highly motivated to proceed with immunotherapy she may benefit from skin testing. She reports that she has many medical appointments coming up but will call the allergy department at her convenience to reschedule skin testing. Recommend that she discuss with allergy if she requires pulmonary clearance prior to proceeding. Not available 06/26/2024 13:39:19 Plan of Treatment Reminders Order Date Submit Date Provider Last Modified By Organization Details Last Modified Time Details Appointments None recorded. Lab None recorded. Referral None recorded. Procedures allergy testing, skin prick (PROC) 2024 025 [email or web address] Not available 5 10:48:18 intradermal allergy skin testing (PROC) 2024 025 [email or web address] Not available 5 10:48:18 pulmonary function test procedure (PROC) 2024 025 [email or web address] Not available 5 10:48:18 pulse oximetry (PROC) 2024 025 [email or web address] Not available 5 10:48:18 Surgeries None recorded. Imaging None recorded. Medication Orders doxycycline hyclate 100 mg tablet 2024 025 [email or web address] [facility] #[id number], [address] [place], [address], 5 12:50:15 prednisone 10 mg tablet 2024 025 [email or web address] [facility] #[id number], [address] [place], [address], 5 12:50:47 Patient TargetsNo targets recorded. Patient Instructions Encounter Date Encounter Id Patient Instructions Last Modified By Organization Details Last Modified Time 06/20/2024 [id number] Nursing Documentation for Allergy Testing: Ordering Provider {{Dr. Sandor Ruano* Dr. Shalini Lai}} Weight:lbs:224? ? ?kg: ? ? ? PFT {{Yes* no}} With Bronchodilator {{Yes no*}} approval needed to proceed with allergy testing? {{Yes* No}} {{Dr. Sandor Loya* Dr. Alfonso Lai}} ok'd testing {{Yes No Pulmonary Clearance* PCP Clearance RAST}}Hi story of Asthma:{{Yes* No}} Asthma Meds:symbicort, montelukast and albuterol ? ? ?Last used:? ? ?1 week ago Asthma exacerbated by: ? ? ? Chance that : {{Yes No* Not Sure N/A}} Fear of needles: {{Yes No*}} Regular medications reviewed in Computer: {{Yes* No}} Medication allergies: {{Reviewed* NKDA}} Antihistamine use: {{Yes No*}} Medications used: ? ? ? Food Allergies:no ? ? ? Any foods make your mouth feeling itchy: {{Yes No*}} If yes: ? ? ? History of severe reaction where had to go to ER? {{Yes No*}} If yes details: ? ? ? Type of heat in home: {{Baseboard Forced Air Radiator* othe r}} Pets: {{Yes No*}} If yes: ? ? ? Smoker: {{Yes Current* Never For moira}} If former smoker-how much ? ? ? / day for how long ? ? ? When quit ? ? ? years ago Smoking now-how much ? ? ? 7 /day for how long for 49 years ? ? ? Occupation/Social History: ? ? ? Symptoms having: {{Congestion* Post Nasal Drip Headache Runn y Nose Cough Other}} If other: ? ? ? Frequency {{Seasonally Year Round}} Spirometry Contraindications: Heart attack in the last 3 months: {{Yes No*}} Major surgery in last 3 months: {{Yes No*}} Detached retina(serious eye issues) in last 2 months: {{Yes No*}} Hospitilization in last month: {{Yes No*}} Proceed with PFT {{Yes* No}} approval needed: {{Yes No*}} Nursing Notes: Pt tolerated test well {{Yes No n/a#}} Benadryl cream to test sites {{Yes No n/a#}} Patient became syncopal-placed in supine position {{Yes No n/a#}} Large reactions to MQT, reschedule IDT for a different date {{Yes No n/a#}} Other: Pt presents for allergy testing. Pt had held metoprolol and bp was fine for testing. Pt also held all of her asthma meds as well due to not knowing if she could have them. Dr. Loya looked at the PFT and would like to not do testing today but have her do RAST instead. He did state that if the RAST did not show much and skin testing is of interest then she would need to be cleared by her service writer first. She has an appt with them in August and she is fine with this plan. She also had me explain this to her daughter as well to make sure she did not miss anything. ? ? ? Written by: {{MAYNOR Martins, JESSICA Sosa}} [email or web address] Not available 06/20/2024 13:42:37 Reason for Referral None Reported. Results Created Date Observation Date Name Description Value Unit Range Abnormal Flag Note LastModifiedBy Organization Detail LastModifiedTime 06/21/1906/20/2024 ALLER GENS, ZONE 1 class description Commen t Level s of Speci fic IgE Class Descr iptio n of Class ----- ----- ----- ----- ----- -- ----- ----- ----- ----- ----- < 0.10 0 Negat dale 0.10 - 0.31 0/I Equiv ocal/ Low 0.32 - 0.55 I Low 0.56 - 1.40 II Moder ate 1.41 - 3.90 III High 3.91 - 19.00 IV Very High 19.01 - 100.0 0 V Very High >100. 00 Very High Not Available [facility] ([facility]) [address] [facility], [place], [address], 06/22/2024 12:16:52 06/21/19 25 06/21/2024 ALLER GENS, ZONE 1 S544-IfU D pteronyssinu s 0.57 kU/L class II abnormal Not Available [facility] ([facility]) [address] [place], [address], 06/22/2024 12:16:52 06/21/19 25 06/21/2024 ALLER GENS, ZONE 1 N603-LhA D farinae 0.45 kU/L class I abnormal Not Available [facility] ([facility]) [address] [place], [address], 06/22/2024 12:16:52 06/21/19 25 06/21/2024 ALLER GENS, ZONE 1 H374-EsD CAT dander <0.10 kU/L class 0 Not Available [facility] ([facility]) [address] [facility], [place], [address], 06/22/2024 12:16:52 06/21/19 25 06/21/2024 ALLER GENS, ZONE 1 E062-GzJ dog dander <0.10 kU/L class 0 Not Available [facility] ([facility]) [address] [place], [address], 06/22/2024 12:16:52 06/21/19 25 06/21/2024 ALLER GENS, ZONE 1 k935-SsJ bermuda grass <0.10 kU/L class 0 Not Available [facility] ([facility]) [address] [place], [address], 06/22/2024 12:16:52 06/21/19 25 06/21/2024 ALLER GENS, ZONE 1 a087-NdQ bluegrass, [facility] <0.10 kU/L class 0 Not Available [facility] ([facility]) [address] [place], [address], 06/22/2024 12:16:52 06/21/19 25 06/21/2024 ALLER GENS, ZONE 1 h066-AdN bahia grass <0.10 kU/L class 0 Not Available [facility] ([facility]) [address] [facility] [place], [address], 06/22/2024 12:16:52 06/21/19 25 06/21/2024 ALLER GENS, ZONE 1 C462-VoP cockroach, cook islander 0.11 kU/L class 0/I abnormal Not Available [facility] ([facility]) [address] [facility] [place], [address], 06/22/2024 12:16:52 06/21/19 25 06/21/2024 ALLER GENS, ZONE 1 U470-RpW penicillium chrysogen <0.10 kU/L class 0 Not Available [facility] ([facility]) [address] [place], [address], 06/22/2024 12:16:52 06/21/19 25 06/21/2024 ALLER GENS, ZONE 1 Y307-XiG cladosporium herbarum <0.10 kU/L class 0 Not Available [facility] ([facility]) [address] [place], [address], 06/22/2024 12:16:52 06/21/19 25 06/21/2024 ALLER GENS, ZONE 1 U345-NwQ aspergillus fumigatus 0.17 kU/L class 0/I abnormal Not Available [facility] ([facility]) [address] [place], [address], 06/22/2024 12:16:52 06/21/19 25 06/21/2024 ALLER GENS, ZONE 1 D347-BxQ mucor racemosus <0.10 kU/L class 0 Not Available [facility] ([facility] [place] [facility]) [address] [place], [address], 06/22/2024 12:16:52 06/21/19 25 06/21/2024 ALLER GENS, ZONE 1 O162-OoK alternaria alternata <0.10 kU/L class 0 Not Available [facility] ([facility]) [address] [facility] [place], [address], 06/22/2024 12:16:52 06/21/19 25 06/21/2024 ALLER GENS, ZONE 1 C114-JkL stemphylium herbarum 0.17 kU/L class 0/I abnormal Not Available [facility] ([place] [facility]) [address], [place], [address], 06/22/2024 12:16:52 06/21/19 25 06/21/2024 ALLER GENS, ZONE 1 V538-LbX common silver birch <0.10 kU/L class 0 Not Available [facility] ([place] [facility]) [address], [place], [address], 06/22/2024 12:16:52 06/21/19 25 06/21/2024 ALLER GENS, ZONE 1 V450-TgN oak, white <0.10 kU/L class 0 Not Available [facility] ([facility] [place] [facility]) [address], [place], [address], 06/22/2024 12:16:52 06/21/19 25 06/21/2024 ALLER GENS, ZONE 1 T687-VnS elm, cook islander <0.10 kU/L class 0 Not Available [facility] ([facility]) [address], [place], [address], 06/22/2024 12:16:52 06/21/19 25 06/21/2024 ALLER GENS, ZONE 1 C740-GzI yovana, white <0.10 kU/L class 0 Not Available [facility] ([facility] [place] [facility]) [address] [facility], [place], [address], 06/22/2024 12:16:52 06/21/19 25 06/21/2024 ALLER GENS, ZONE 1 M686-CiV maple/box elder <0.10 kU/L class 0 Not Available [facility] ([facility] [facility]) [address] [facility], [place], [address], 06/22/2024 12:16:52 06/21/19 25 06/21/2024 ALLER GENS, ZONE 1 H639-PrJ hazelnut tree <0.10 kU/L class 0 Not Available [facility] ([facility] [place] [facility]) [address], [place], [address], 06/22/2024 12:16:52 06/21/19 25 06/21/2024 ALLER GENS, ZONE 1 P764-TmQ hickory, white <0.10 kU/L class 0 Not Available [facility] ([facility] [place] [facility]) [address], [place], [address], 06/22/2024 12:16:52 06/21/19 25 06/21/2024 ALLER GENS, ZONE 1 W070-DgN white mulberry <0.10 kU/L class 0 Not Available [facility] ([facility]) [address], [place], [address], 06/22/2024 12:16:52 06/21/19 25 06/21/2024 ALLER GENS, ZONE 1 N952-ExI cedar, mountain <0.10 kU/L class 0 Not Available [facility] ([facility]) [address], [place], [address], 06/22/2024 12:16:52 06/21/19 25 06/21/2024 ALLER GENS, ZONE 1 I611-TzH ragweed, short <0.10 kU/L class 0 Not Available [facility] ([facility]) [address], [place], [address], 06/22/2024 12:16:52 06/21/19 25 06/21/2024 ALLER GENS, ZONE 1 W651-KsQ mugwort <0.10 kU/L class 0 Not Available [facility] ([facility]) [address], [place], [address], 06/22/2024 12:16:52 06/21/19 25 06/21/2024 ALLER GENS, ZONE 1 U808-EmU plantain, guatemalan <0.10 kU/L class 0 Not Available [facility] ([facility]) [address] [facility], [place], [address], 06/22/2024 12:16:52 06/21/19 25 06/21/2024 ALLER GENS, ZONE 1 A382-BrH sheep sorrel <0.10 kU/L class 0 Not Available [facility] ([facility]) [address] [facility], [place], [address], 06/22/2024 12:16:52 06/21/19 25 06/21/2024 ALLER GENS, ZONE 1 A458-MeK nettle <0.10 kU/L class 0 Not Available [facility] ([facility]) [address] [facility], [place], [address], 06/22/2024 12:16:52 06/21/19 25 06/22/2024 ALLER GENS, ZONE 1 R435-HxC pigweed, common <0.10 kU/L class 0 Not Available [facility] ([facility]) [address] [facility], [place], [address], 06/22/2024 12:16:52 06/21/19 25 06/21/2024 IMMUN OGLOB ULIN E, TOTAL immunoglobul in E, total 435 IU/mL 6-495 Not Available [facility] ([facility]) [address] [facility], [place], [address], 06/22/2024 12:16:53 06/21/19 martinez metry testi ng* No observ ation record ed. [email or web address] Not Available 2024 16:08:04 Result Notes None recorded. Problems Name Problem SNOMED Code Status Onset Date Resolution Date Notes Provider Name and Address Organization Details Recorded Time Chronic pansinusi tis 58462724 Active 2022 Chronic pansinusi tis; Note: Date Diagnosed : 06/23/2022 11:57 AM (J32.4) Not Available [facility] 4 03:27:36 Gastroeso phageal reflux disease 845370826 Active 2013 GERD; CMS Risk: moderate risk CMS Treatment : new problem (to examiner) : no additiona l workup planned N ote: Date Diagnosed : 01/18/2014 10:41 AM (530.81) Not Available [facility] 4 03:27:36 Dysphagia 91245560 Active 2013 Dysphagia ; CMS Risk: moderate risk CMS Treatment : new problem (to examiner) : no additiona l workup planned N ote: Date Diagnosed : 01/18/2014 10:41 AM (787.20) Not Available [facility] 4 03:27:37 Acute sinusitis 04859075 Active 2024 LEON HEBERT PA-C [address], [place], [address] , [facility] - [facility] 5 14:23:03 Allergic rhinitis 32275395 Active 2024 LEON HEBERT PA-C [address], [place], [address] , [facility] - [facility] 5 13:07:34 Non-aller gic rhinitis 77903068693 1 Active 2024 LEON HEBERT PA-C [address], [place], [address] , [facility] 5 13:07:40 Seasonal allergic rhinitis 830546965 Active 2024 LEON HEBERT PA-C [address], [place], [address] , [facility] 5 13:07:40 Problem Notes None recorded. Procedures Surgical History None recorded. Imaging Results Imaging Date Name Status [facility] Details LastModified Time 06/20/2024 spirometry testing* completed [email or web address] Information not available 06/22/2024 16:08:04 Procedure Notes None recorded. Medical Equipment None Reported. Allergies Allergen ID Allergen Name Allergen Category Reaction Reaction Severity Criticality Documentation Date Start Date Code Code System Note Provider Name and Address Organization Details Recorded Time 92904 clarithro mycin medicatio n other Not available Not available 08/30/2023 63588 RxNorm React ion: Unkno wn; Not Available [facility] 4 00:49:19 29530 Bactrim medicatio n other Not available Not available 08/30/2023 17922 9 RxNorm React ion: Unkno wn; Not Available [facility] 4 00:49:34 24152 amoxicill in medicatio n other Not available Not available 08/30/2023 723 RxNorm React ion: Unkno wn; Not Available [facility] 4 00:49:45 Medications Name Sig Start Date [...] Y 2 TABS DIARIO POR 3 [place] 05/22 completed Not Available Not Available Not Available doxycycli ne hyclate 100 mg capsule Take 1 capsule by mouth twice a day 05/22 completed Medicati on ID: [id number] D uration Value: 14 Brand Name: doxycycl [...] 4 D SEG N LAS INDICACI ONES 05/22 completed Not Available Not Available Not Available fosfomyci n trometham ine 3 gram oral packet TAKE 1 SACHET BY MOUTH ONCE 05/22 completed Not Available Not Available Not Available nicotine (polacril ex) 2 mg gum CHEW 1 PIECE EVERY 2 HOURS NEEDED FOR SMOKING CESSATIO N SEG N LO INDICADO 06/20 completed Not Available Not Available Not Available metoprolo l succinate ER 50 mg [...] ORAL CADA OCHO HORAS FOR 5 DAYS 06/20 completed Not Available Not Available Not Available prednison e 20 mg tablet TOME DOS TABLETAS POR V A ORAL TODOS LOS D POR 5 D CON ALIMENTO OR MILK 05/22 completed Not Available Not Available Not Available clonazepa m 0.5 mg tablet TAKE 1 TABLET BY MOUTH AT BEDTIME NEEDED FOR ANXIETY/ INSOMNIA 06/20 completed Not Available Not Available Not Available clonazepa m 1 mg tablet 06/20 completed Medicati on ID: [id number] B rand Name: clonazep am Send Method: [...] t Available amlodipin e 2.5 mg tablet 06/26 completed Medicati on ID: [id number] B rand Name: amlodipi ne Send Method: E-Prescr ibed Sub s Allowed: subs OK Speci al Instruct ion: TOME OMAIRA TABLETA POR V A ORAL TODOS LOS D Medic ationGen ericName : corey ne Not Available Not Available Not Available [...] BENZOYL PEROXIDE NOT WORKING AFTER 10 DAYS 06/26 completed Not Available Not Available Not Available ascorbic acid (vitamin C) 250 mg [...] CUANDO SEA NECESARI O PARA COUGH, [place] 05/22 completed Not Available Not Available Not Available nitrofura ntoin macrocrys sandra 100 mg capsule TOME 1 C PSULA POR V A ORAL DOS VECES AL D A 05/22 completed Not Available Not Available Not Available triamcino lone acetonide 0.1 % topical ointment APPLY TO ARMS, BACK, AND LEGS TWICE A DAY NEEDED FOR FLARES REDUCE SYMPTOMS IMPROVE 06/26 completed Not Available Not Available Not Available buspirone 10 mg tablet active Medicati on ID: [id number] B rand Name: buspiron e Send Method: E-Prescr ibed Sub s Allowed: subs OK Speci al Instruct ion: TAKE 1 TABLET BY MOUTH TWICE DAILY Me dication GenericN cristian: buspiron e Not Available Not Available Not Available Advair Diskus 250 mcg-50 mcg/dose powder for inhalatio n active Medicati on ID: [id number] B rand Name: Advair Diskus S end Method: E-Prescr ibed Sub s Allowed: subs OK Speci al Instruct ion: INHALE 1 PUFF INHALATI ON TWICE A DAY FOR 30 DAYS. Me dication GenericN cristian: Advair Diskus Not Available Not Available Not Available nicotine 21 mg/24 hr daily transderm al patch APPLY 1 PATCH TOPICALL Y A DIARIO 06/20 completed Not Available Not Available Not Available lisinopri l 30 mg tablet TOME [...] ORAL TODOS LOS D AL ACOSTARS E 06/20 completed Not Available Not Available Not Available albuterol sulfate HFA 90 mcg/actua tion aerosol inhaler PLEASE SEE ATTACHED FOR DETAILED DIRECTIO NS active Not Available Not Available No t Available lisinopri l 40 mg tablet 06/26 completed Medicati on ID: [id number] B rand Name: lisinopr il Send Method: [...] spray,melita pension 06/23 completed Medicati on ID: [id number] B rand Name: fluticas one propiona te Send Method: E-Prescr ibed Sub s Allowed: subs OK Speci al Instruct ion: USE 2 SPRAYS IN EACH NOSTRIL ONCE DAILY Me dication GenericN cristian: fluticas one propiona te Not Available Not Available Not Available doxycycli ne hyclate 100 mg tablet TOME 1 TABLETA POR V A ORAL DOS VECES AL D A FOR 21 DAYS 05/22 completed Not Available Not Available Not Available loratadin e 10 mg tablet TOME [...] VECES AL D A FOR 30 DAYS 06/26 completed Not Available Not Available Not Available varenicli ne tartrate 0.5 mg (11)-1 mg (42) tablets in a dose pack TOME SEG N LO INDICADO 06/26 completed Not Available Not Available Not Available Symbicort 160 mcg-4.5 mcg/actua tion HFA aerosol inhaler active Medicati on ID: [id number] B rand Name: Symbicor t Send Method: E-Prescr ibed Sub s Allowed: subs OK Speci al Instruct ion: INHALE 2 PUFFS DOS VECES AL D A Medica tionGene ricName: Symbicor t Not Available Not Available Not Available FreeStyle [place] Lite kit USE DIRECTED FOR TYPE 2 [...] Available Nasacort 55 mcg nasal spray aerosol [place] 2 spray into both nostrils once a day 2022 active Medicati on ID: [id number] D uration Value: 30 Brand Name: Nasacort Send Method: E-Prescr ibed Sub s Allowed: subs OK Medic ationGen ericName : Nasacort Not Available Not Available Not Available nicotine (polacril ex) 2 mg buccal mini lozenge USE 1 LOZENGE BY MOUTH EVERY 2 HOURS DIRECTED ON PACKAGE 06/20 completed Not Available Not Available Not Available Trelegy Ellipta 200 mcg-62.5 mcg-25 mcg powder for inhalatio n 06/20 completed Medicati on ID: [id number] B rand Name: Trelegy Ellipta Send Method: [...] Not Available Vitals Date Recorded Body height Body mass index (BMI) Body weight Oxygen saturation Oxygen saturation in Arterial blood by Pulse oximetry Heart rate Systolic blood pressure Diastolic blood pressure Provider Name and Address Organization Details Last Updated DateTime 157.48 cm 41 kg/m2 418816. 69 g 98 % 98 % 89 /min 139 mm[Hg] 84 mm[Hg] VANE HYMAN, [facility] [address], [address] ZENIA Rogers - [facility] 13:04:21 Date Recorded Body height Body weight Provider Name and Address Organization Details Last Updated DateTime 06/26/2024 157.48 cm 519746.69 g Ebony Briceño [place] - [facility] 06/26/2024 12:58:22 Date Recorded Body height Provider Name an d Address Organization Details Last Updated DateTime 04/24/2024 157.48 cm Ogzoila Patterson [place] - [facility] 04/24/2024 13:42:40 Date Recorded Body height Body mass index (BMI) Body weight Provider Name and Address Organization Details Last Updated DateTime 05/22/2024 157.48 cm 41.2 kg/m2 103363.28 g Sayra Rios [place] - [facility] 05/22/2024 12:49:41 Social History Question Answer Notes LastModified by Organizat ion Details LastModified Time Tobacco Smoking Status Current Every Day Smoker VANE HYMAN [address], [address], [facility] - [facility] 06/20/2024 13:09:35 How Much Tobacco Do You Smoke? 2 PPW Information not available 06/20/2024 How Many Years Have You Smoked Tobacco? 49 Information not available 06/20/2024 Sex: Unknown Functional Status None recorded. Mental Status None recorded. Family History Nothing Reported. Medical History No medical history recorded. Gynecological HistoryNo gynecological history recorded. Obstetrics History GPAL:G 0 P 0 0 0 0 Past Encounters Encounter ID Performer Location Encounter Start Date Encounter Closed Date Diagnosis/Indication Diagnosis SNOMED-CT Code Diagnosis ICD10 Code Diagnosis Note [id number] SHANA LOYA MD [facility] [address] [address] 04/24/2024 13:31:45 04/24/2024 14:30:23 Acute sinusitis 63924147 J01.90 [id number] COURTNEY CÁRDENAS MD [facility] [address] [address] 05/22/2024 12:44:01 05/22/2024 13:11:34 Allergic rhinitis 37405853 J30.9 Acute sinusitis 54811515 J01.90 [id number] VANE HYMAN [facility] Allergy [address] [place] [address] [address] 06/20/2024 12:43:25 06/20/2024 13:43:11 Allergic rhinitis 07688113 J30.89 [id number] COURTNEY CÁRDENAS MD [facility] [address] [address] 06/26/2024 12:49:17 06/26/2024 13:16:54 Allergic rhinitis 25755014 J30.9 Chronic pansinusitis 888 54029 J32.4 Health Concerns Section Related Observation LastModified by Organization Detai ls LastModified Time None Recorded Concern Status LastModified by Organization Details LastModified Time None Recorded Advance Directives Directive None Recorded Payers Encounter Date Sequence Insurance Name Policy Number Policy Alfaro Covered Member ID Alfaro Member ID Guarantor Name 04/24/2024 1 [place]ICAID[place] [facility] Roxy Sosa [id number] Roxy Sosa 05/22/2024 1 [place] [facility] Roxy Sosa [id number] Roxy Sosa 06/20/2024 1 [facility] - DUAL ELIGIBLE - [employer] - SENIOR PLAN (MEDICARE REPLACEMENT/ ADVANTAGE - HMO) Roxy Sosa [id number] Roxy Sosa 06/26/2024 1 [facility] - DUAL ELIGIBLE - [employer] - SENIOR PLAN (MEDICARE REPLACEMENT/ ADVANTAGE - HMO) Roxy Sosa [id number] Roxy Sosa Notes Date Note Type Note [...] to Doxycycline. She uses Nasocort daily. SHANA LOYA MD [address] [place] [address], [address], [facility] - [facility] 04/24/2024 16:57:37 05/22/2024 text/html 63 year old lázaro phillips presents for follow up of acute sinusitis. Her symptoms improved with Doxycycline and Prednisone. She monitored her blood sugar when on Prednisone and did fine. She reports very minimal residual right maxillary sinus pressure. 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 She takes Claritin but does not find it to be that helpful. She uses Flonase. She is interested in updated allergy testing. COURTNEY CÁRDENAS MD [address], [id number], [facility] 05/24/2024 08:29:06 06/20/2024 text/html Pt presents for allergy testing. Pt had held metoprolol and bp was fine for testing. Pt also held all of her asthma meds as well due to not knowing if she could have them. Dr. Loya looked at the PFT and would like to not do testing today but have her do RAST instead. He did state that if the RAST did not show much and skin testing is of interest then she would need to be cleared by her service writer first. She has an appt with them in August and she is fine with this plan. She also had me explain this to her daughter as well to make sure she did not miss anything. VANE TAYLOR, [facility] [address], [phone], [facility] 06/20/2024 13:43:05 06/26/2024 text/html 63 year old lázaro phillips presents to follow up on her allergy testing obtained due to recurrent sinusitis. At the time of her testing she was confused as to which medications she needed to hold. She ended up holding all medications including her asthma medications. PFTs were reviewed by Dr. Loya and he recommended RAST rather than skin testing. COURTNEY CÁRDENAS MD 100 [facility],[address], [phone], [facility] 06/27/2024 10:28:28 OBGyn Episode No OBEpisode recorded.
--- OUTSIDE RECORDS SUMMARY | 2024-08-08 16:24 | XMS_ITS | Clinical Summary ---
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
[2024-08-08 18:13] LABS: Alanine Aminotransferase 36 U/L (0-31); Aspartate Amino Transferase 36 U/L (5-31); Estimated Glomerular Filt Rate > 60
== END 2024-08-08 12:31 | disposition home or self-care (01) ==
LOC: HO.HKASLDS 12:30
PROVIDERS: PCP Internal Medicine; Visit Provider Internal Medicine Rheumatology
DX: M17.12 Unilateral primary osteoarthritis, left knee (principal); M79.672 Pain in left foot
CPT/HCPCS: 36415; 82565; 84450; 84460; 99212

== ENCOUNTER → 2024-09-04 14:10 | Outpatient (BNVA) | payer OTHER, SELFPAY | PROVIDERS: PCP Internal Medicine; Visit Provider Internal Medicine Rheumatology ==